=== PATIENT | male | born 1965 | race African-American/Black ===

== ENCOUNTER 2025-05-05 16:01 | Emergency (ER) | payer SELFPAY ==
[~2025-05-05] VITALS: Ht 177.8 cm; Wt 73.0 kg
[2025-05-05 16:17] VITALS: O2SAT 98
[2025-05-05 16:44] LABS: BASOPHILS % 0.4 % (0.0-2.0); EOSINOPHILS % 4.1 % (0.0-5.0); HEMATOCRIT. 44.1 % (42.0-52.0); HEMOGLOBIN. 14.8 g/dL (14.0-18.0); LYMPHOCYTES % 32.5 % (20.0-50.0); MEAN CORPUSCULAR HEMOGLOBIN 30.6 pg (28.0-32.0); MEAN CORPUSCULAR HGB CONC 33.5 g/dL (31.0-37.0); MEAN CORPUSCULAR VOLUME 91.3 fL (80.0-94.0); MEAN PLATELET VOLUME 9.1 fl (7.4-10.4); MONOCYTES % 8.2 % (2.0-8.0); NEUTROPHILS % 54.8 % (40.0-76.0); PLATELET 104 x1000/uL (130-400); RED BLOOD CELL COUNT 4.82 mill/uL (4.7-6.1); RED CELL DISTRIBUTION WIDTH 12.2 % (11.6-14.6); WHITE BLOOD COUNT 3.6 x1000/uL (4.5-11.0)
[2025-05-05 16:52] LABS: CHLORIDE 104 mEq/L (98-107); POTASSIUM 4.1 mEq/L (3.5-5.1); SODIUM 141 mEq/L (136-145)
[2025-05-05 16:53] LABS: CALCIUM 9.5 mg/dL (8.7-10.4); CARBON DIOXIDE 32 mEq/L (21-32)
[2025-05-05 16:54] VITALS: TEMP 36.6
[2025-05-05 16:58] LABS: CREATININE 1.3 mg/dL (0.6-1.3); GLUCOSE 105 mg/dL (70-105); UREA NITROGEN BLOOD 16 mg/dL (9-23)
[2025-05-05 16:59] LABS: TROPONIN I HIGH SENSITIVITY < 4 ng/L (3.0-53)
[2025-05-05 18:12] VITALS: BP 129/88; PULSE 60; RESP 20; O2SAT 98
== END 2025-05-05 18:15 | disposition home or self-care (01) ==
LOC: ER 16:01
DX: R42 Dizziness and giddiness (principal); I10 Essential (primary) hypertension
CPT/HCPCS: 36415; 71045; 80048; 84484; 85025; 93005; 99285

== ENCOUNTER 2025-06-20 13:01 | Emergency (ER) | payer SELFPAY ==
[~2025-06-20] VITALS: Ht 177.8 cm; Wt 72.0 kg
[2025-06-20 13:19] VITALS: O2SAT 98
[2025-06-20] MEDS: FAMOTIDINE 20MG TABLET PO ONE (14:40)
[2025-06-20] MEDS: ONDANSETRON 4MG ODT PO ONE (14:40)
[2025-06-20] MEDS: VISCOUS LIDOCAINE 2% 15 ML UDC MM ONE (14:40)
[2025-06-20] MEDS: MAGNESIUM/ALUMINUM HYDROXIDE/SIMETHICONE 30ML UDC PO ONE (14:40)
[2025-06-20 14:46] LABS: BASOPHILS % 0.5 % (0.0-2.0); EOSINOPHILS % 5.0 % (0.0-5.0); HEMATOCRIT. 44.9 % (42.0-52.0); HEMOGLOBIN. 15.2 g/dL (14.0-18.0); LYMPHOCYTES % 30.4 % (20.0-50.0); MEAN PLATELET VOLUME 9.9 fl (7.4-10.4); MONOCYTES % 9.3 % (2.0-8.0); NEUTROPHILS % 54.8 % (40.0-76.0); PLATELET 106 x1000/uL (130-400); RED BLOOD CELL COUNT 4.98 mill/uL (4.7-6.1); RED CELL DISTRIBUTION WIDTH 12.6 % (11.6-14.6)
[2025-06-20 15:03] LABS: CREATININE 1.2 mg/dL (0.6-1.3); TROPONIN I HIGH SENSITIVITY < 4 ng/L (3.0-53); UREA NITROGEN BLOOD 15 mg/dL (9-23)
[2025-06-20 15:05] LABS: ASPARTATE AMINOTRANSFERASE 19 IU/L (<34); BILIRUBIN DIRECT 0.3 mg/dL (<=3.0); BILIRUBIN TOTAL 0.8 mg/dL (0.1-1.0); PROTEIN TOTAL 7.6 g/dL (6.0-8.3)
[2025-06-20] MEDS ORDERED: MAG355OR21 MT (16:12)
[2025-06-20] MEDS ORDERED: FAMO-135 MT (16:12)
[2025-06-20 16:42] VITALS: BP 130/86; PULSE 66; RESP 18; TEMP 37; O2SAT 100
== END 2025-06-20 16:52 | disposition home or self-care (01) ==
LOC: ER 13:11
DX: R07.9 Chest pain, unspecified (principal)
CPT/HCPCS: 99285; 76705; 71045; 80076; 80048; 83690; 85025; 84484; 36415; 93005; Q0162